=== PATIENT | female | born 1960 | race Two or more races ===

== ENCOUNTER 2021-04-13 11:43 | Inpatient (IN) | payer MEDICAID, OTHER ==
[~2021-04-13] VITALS: Ht 154.9 cm; Wt 86.9 kg
[2021-04-13] MEDS ORDERED: KETOROLAC 30 MG/1 ML ONE (12:06)
[2021-04-13] MEDS ORDERED: ACETAMINOPHEN 500 MG TABLET ONE (12:06)
--- NOTE | 2021-04-13 12:12 | NUR ---
PT BIBA. PER EMS PT HAS HAD SORE NECK, PAINFUL URINATION, N/V, AND COUGH. EMS ALSO REPORTS ORAL TEMPERATURE 102.9F. PT HAD RECTAL TEMPERATURE 103.6F CURRENTLY. PT STATES SHE HAS HAD THESE SYMPTOMS FOR APPROX A WEEK. DR. KNUTSON AT BEDSIDE FOR EVAL. EKG DONE UPON ARRIVAL. PT RESTING IN [facility], MONITORING IN PLACE, DAUGHTER AT BEDSIDE, NADN AT THIS TIME. COVID SWAB COLLECTED AND WALKED TO LAB. PT MEDICATED PER [facility]. PIV IN PLACE FROM [facility]. [facility].
[2021-04-13] MEDS ORDERED: KETOROLAC 30 MG/1 ML IVPush ONE (12:30)
[2021-04-13] MEDS ORDERED: ACETAMINOPHEN 500 MG TABLET PO ONE (12:30)
[2021-04-13] MEDS ORDERED: SODIUM CHLORIDE 0.9% 1,000ML IVBOLUS ONE ×3 (12:30→19:30)
[2021-04-13 13:14] LABS: BASOPHILS % (AUTO) 0 % (0-1); EOSINOPHILS % (AUTO) 0 % (1-7); LYMPHOCYTES % (AUTO) 5 % (22-44); MEAN CORPUSCULAR HEMOGLOBIN 29.9 pg (27.0-34.8); MEAN CORPUSCULAR HGB CONC 34.1 g/dL (32.4-35.8); MEAN PLATELET VOLUME 7.3 fL (7.4-10.4); MONOCYTES % (AUTO) 5 % (2-9); NEUTROPHILS % (AUTO) 90 % (42-75); PLATELET COUNT 217 x10^3/uL (130-400); RED BLOOD COUNT 3.95 x10^6/uL (3.82-5.3); RED CELL DISTRIBUTION WIDTH 12.3 % (9.6-15.2)
[2021-04-13 13:22] LABS: ALANINE AMINOTRANSFERASE 11 U/L (12-78); ALBUMIN 2.9 g/dL (3.4-5.0); ANION GAP 7 mmol/L (5-15); CALCIUM 8.5 mg/dL (8.5-10.1); CHLORIDE 110 mmol/L (98-107)
[2021-04-13 13:24] LABS: ALKALINE PHOSPHATASE 83 U/L (45-117); BILIRUBIN,TOTAL 0.5 mg/dL (0.2-1.0); TOTAL PROTEIN 6.1 g/dL (6.4-8.2)
--- NOTE | 2021-04-13 13:30 | NUR ---
UOB TO COMMODE WITHOUT ASSISTANCE. URINE COLLECTED IN HAT NOTED TO BE CLOUDY. SENT TO LAB
[2021-04-13 13:39] LABS: MICROSCOPIC INDICATED
[2021-04-13] MEDS ORDERED: CEFTRIAXONE 1,000 MG in DEXTROSE 5% 50 ML IVPB ONE (14:00)
[2021-04-13 15:46] VITALS: BP 93/62
[2021-04-13] MEDS ORDERED: LEVO137C4 PO (16:23)
[2021-04-13] MEDS ORDERED: BISACODYL 10 MG SUPP PR PRN (19:00)
[2021-04-13] MEDS ORDERED: ONDANSETRON ODT 4 MG PO PRN (19:00)
[2021-04-13] MEDS ORDERED: CEFTRIAXONE 1,000 MG in DEXTROSE 5% 50 ML IVPB SCH (19:00)
[2021-04-13] MEDS ORDERED: GUAIFENESIN/COD200MG-20MG/10ML LIQUID PO PRN (19:00)
[2021-04-13] MEDS ORDERED: hydrALAzine 20 MG/ML, 1ML IVPush PRN (19:00)
[2021-04-13] MEDS ORDERED: POTASSIUM CHLORIDE 40 MEQ in SODIUM CHLORIDE 0.9% 500 ML IV ONE (19:30)
[2021-04-13 19:48] VITALS: BP 146/82
[2021-04-13 19:50] VITALS: BP 146/82
[2021-04-13] MEDS: ENOXAPARIN 40 MG/0.4 ML SQ SCH (20:37)
[2021-04-13] MEDS: DOXYCYCLINE 100MG TABLET PO SCH (20:43)
[2021-04-13] MEDS: MELATONIN 5 MG TABLET PO PRN (20:44)
[2021-04-13 23:03] LABS: RAPID INFLUENZA A Negative (Negative); RAPID INFLUENZA B Negative (Negative)
[2021-04-14 02:41] VITALS: BP 124/67
[2021-04-14] MEDS: ACETAMINOPHEN 325 MG TABLET PO PRN ×2 (02:55→09:46)
[2021-04-14] MEDS: LACTATED RINGERS 1,000 ML IV SCH ×2 (02:57→20:53)
[2021-04-14] MEDS: CEFTRIAXONE 2 GM in DEXTROSE 5% 50 ML IVPB SCH (03:43)
[2021-04-14 06:18] LABS: BASOPHILS % (AUTO) 0 % (0-1); EOSINOPHILS % (AUTO) 0 % (1-7); LYMPHOCYTES % (AUTO) 18 % (22-44); MEAN CORPUSCULAR HEMOGLOBIN 30.4 pg (27.0-34.8); MEAN PLATELET VOLUME 7.2 fL (7.4-10.4); MONOCYTES % (AUTO) 8 % (2-9); NEUTROPHILS % (AUTO) 73 % (42-75); PLATELET COUNT 195 x10^3/uL (130-400); RED BLOOD COUNT 3.53 x10^6/uL (3.82-5.3); RED CELL DISTRIBUTION WIDTH 12.2 % (9.6-15.2)
[2021-04-14 06:30] LABS: ALANINE AMINOTRANSFERASE 7 U/L (12-78); ALBUMIN 2.4 g/dL (3.4-5.0); ANION GAP 8 mmol/L (5-15); CALCIUM 8.2 mg/dL (8.5-10.1); CHLORIDE 112 mmol/L (98-107); CREATININE 0.53 mg/dL (0.55-1.02)
[2021-04-14] MEDS ORDERED: OMNIPAQUE 350 MG/ML, 100ML BOTTLE ONE (06:34)
[2021-04-14] MEDS: PANTOPRAZOLE 40MG TABLET PO SCH (06:34)
[2021-04-14 06:40] VITALS: BP 109/70
[2021-04-14 06:40] LABS: ALKALINE PHOSPHATASE 70 U/L (45-117); BILIRUBIN,TOTAL 0.4 mg/dL (0.2-1.0); TOTAL PROTEIN 5.7 g/dL (6.4-8.2)
[2021-04-14] MEDS ORDERED: POTASSIUM CHLORIDE 40 MEQ in SODIUM CHLORIDE 0.9% 500 ML IV ONE (08:00)
[2021-04-14] MEDS: GUAIFENESIN/COD200MG-20MG/10ML LIQUID PO SCH ×4 (09:01→20:54)
[2021-04-14] MEDS: DOXYCYCLINE 100MG TABLET PO SCH ×2 (09:01→20:54)
[2021-04-14 13:03] VITALS: BP 107/70
[2021-04-14 18:40] VITALS: BP 149/86
[2021-04-14] MEDS: ENOXAPARIN 40 MG/0.4 ML SQ SCH (20:55)
[2021-04-15 00:20] VITALS: BP 120/74
[2021-04-15] MEDS: ACETAMINOPHEN 325 MG TABLET PO PRN ×2 (00:38→16:21)
[2021-04-15] MEDS: CEFTRIAXONE 2 GM in DEXTROSE 5% 50 ML IVPB SCH (02:53)
[2021-04-15] MEDS: LEVOTHYROXINE 137 MCG TABLET PO SCH ×3 (05:30→09:09)
[2021-04-15] MEDS: GUAIFENESIN/COD200MG-20MG/10ML LIQUID PO SCH ×4 (05:37→20:42)
[2021-04-15 05:47] LABS: BASOPHILS % (AUTO) 0 % (0-1); EOSINOPHILS % (AUTO) 0 % (1-7); LYMPHOCYTES % (AUTO) 23 % (22-44); MEAN CORPUSCULAR HEMOGLOBIN 30.5 pg (27.0-34.8); MEAN CORPUSCULAR HGB CONC 34.7 g/dL (32.4-35.8); MEAN PLATELET VOLUME 7.2 fL (7.4-10.4); MONOCYTES % (AUTO) 9 % (2-9); NEUTROPHILS % (AUTO) 67 % (42-75); PLATELET COUNT 203 x10^3/uL (130-400); RED BLOOD COUNT 3.66 x10^6/uL (3.82-5.3); RED CELL DISTRIBUTION WIDTH 12.3 % (9.6-15.2)
[2021-04-15 05:55] LABS: ANION GAP 7 mmol/L (5-15); CHLORIDE 110 mmol/L (98-107); CREATININE 0.58 mg/dL (0.55-1.02)
[2021-04-15 06:53] VITALS: BP 161/88
[2021-04-15] MEDS: DOXYCYCLINE 100MG TABLET PO SCH ×2 (09:09→20:43)
[2021-04-15] MEDS: PANTOPRAZOLE 40MG TABLET PO SCH (09:09)
[2021-04-15] MEDS: LACTATED RINGERS 1,000 ML IV SCH (09:10)
[2021-04-15] MEDS: DOCUSATE 100 MG CAPSULE PO PRN (10:20)
[2021-04-15 13:33] VITALS: BP 129/85
[2021-04-15 19:10] VITALS: BP 113/71
[2021-04-15] MEDS: ENOXAPARIN 40 MG/0.4 ML SQ SCH (20:42)
[2021-04-16 00:13] VITALS: BP 123/71
[2021-04-16] MEDS: ACETAMINOPHEN 325 MG TABLET PO PRN (01:37)
[2021-04-16] MEDS: CEFTRIAXONE 2 GM in DEXTROSE 5% 50 ML IVPB SCH (02:24)
[2021-04-16] MEDS: ONDANSETRON 2MG/ML, 2ML IVPush PRN (05:11)
[2021-04-16] MEDS: GUAIFENESIN/COD200MG-20MG/10ML LIQUID PO SCH ×3 (05:11→15:57)
[2021-04-16] MEDS: LEVOTHYROXINE 137 MCG TABLET PO SCH ×2 (05:11→22:04)
[2021-04-16 05:51] LABS: BASOPHILS % (AUTO) 0 % (0-1); EOSINOPHILS % (AUTO) 0 % (1-7); LYMPHOCYTES % (AUTO) 27 % (22-44); MEAN CORPUSCULAR HEMOGLOBIN 30.4 pg (27.0-34.8); MEAN CORPUSCULAR HGB CONC 34.8 g/dL (32.4-35.8); MEAN PLATELET VOLUME 7.1 fL (7.4-10.4); MONOCYTES % (AUTO) 9 % (2-9); NEUTROPHILS % (AUTO) 63 % (42-75); PLATELET COUNT 267 x10^3/uL (130-400); RED BLOOD COUNT 3.92 x10^6/uL (3.82-5.3); RED CELL DISTRIBUTION WIDTH 12.3 % (9.6-15.2)
[2021-04-16 05:52] LABS: ANION GAP 6 mmol/L (5-15); CALCIUM 8.7 mg/dL (8.5-10.1); CHLORIDE 107 mmol/L (98-107)
[2021-04-16 05:54] LABS: CREATININE 0.63 mg/dL (0.55-1.02)
[2021-04-16] MEDS ORDERED: POTASSIUM CHLORIDE 20 MEQ TAB.ER.PRT PO ONE (06:30)
[2021-04-16 06:50] VITALS: BP 116/76
[2021-04-16] MEDS: DOXYCYCLINE 100MG TABLET PO SCH ×2 (08:31→20:14)
[2021-04-16] MEDS: PANTOPRAZOLE 40MG TABLET PO SCH (08:32)
[2021-04-16 13:43] VITALS: BP 127/81
[2021-04-16 19:21] VITALS: BP 147/96
[2021-04-16] MEDS: GUAIFENESIN 200 MG TABLET PO SCH (20:15)
[2021-04-16] MEDS: ENOXAPARIN 40 MG/0.4 ML SQ SCH (20:15)
[2021-04-16] MEDS: DOCUSATE 100 MG CAPSULE PO PRN (20:23)
[2021-04-16] MEDS: POLYETHYLENE GLYCOL 17 GM PACKET PO PRN (20:23)
[2021-04-17 02:19] VITALS: BP 128/77
[2021-04-17] MEDS: CEFTRIAXONE 2 GM in DEXTROSE 5% 50 ML IVPB SCH (02:22)
[2021-04-17 05:25] LABS: BASOPHILS % (AUTO) 1 % (0-1); EOSINOPHILS % (AUTO) 0 % (1-7); LYMPHOCYTES % (AUTO) 33 % (22-44); MEAN CORPUSCULAR HEMOGLOBIN 30.5 pg (27.0-34.8); MEAN CORPUSCULAR HGB CONC 34.9 g/dL (32.4-35.8); MEAN PLATELET VOLUME 6.7 fL (7.4-10.4); MONOCYTES % (AUTO) 11 % (2-9); NEUTROPHILS % (AUTO) 55 % (42-75); PLATELET COUNT 266 x10^3/uL (130-400); RED BLOOD COUNT 3.88 x10^6/uL (3.82-5.3); RED CELL DISTRIBUTION WIDTH 12.3 % (9.6-15.2)
[2021-04-17 05:40] LABS: ANION GAP 8 mmol/L (5-15); CALCIUM 8.8 mg/dL (8.5-10.1); CHLORIDE 107 mmol/L (98-107); CREATININE 0.62 mg/dL (0.55-1.02)
[2021-04-17] MEDS: LEVOTHYROXINE 137 MCG TABLET PO SCH (05:43)
[2021-04-17] MEDS: ACETAMINOPHEN 325 MG TABLET PO PRN ×2 (05:43→14:58)
[2021-04-17] MEDS: GUAIFENESIN 200 MG TABLET PO SCH ×4 (05:44→21:28)
[2021-04-17] MEDS: PANTOPRAZOLE 40MG TABLET PO SCH (07:23)
[2021-04-17 07:40] VITALS: BP 116/77
[2021-04-17] MEDS: DOXYCYCLINE 100MG TABLET PO SCH ×2 (08:31→21:27)
[2021-04-17] MEDS: ONDANSETRON 2MG/ML, 2ML IVPush PRN (09:02)
[2021-04-17] MEDS: POLYETHYLENE GLYCOL 17 GM PACKET PO PRN (11:22)
[2021-04-17] MEDS: DOCUSATE 100 MG CAPSULE PO PRN (11:22)
[2021-04-17 12:42] VITALS: BP 130/82
[2021-04-17] MEDS ORDERED: POTASSIUM CHLORIDE 20 MEQ TAB.ER.PRT PO ONE (20:00)
[2021-04-17 21:17] VITALS: BP 114/63
[2021-04-17] MEDS: ENOXAPARIN 40 MG/0.4 ML SQ SCH (21:29)
[2021-04-17] MEDS: MELATONIN 5 MG TABLET PO PRN (22:18)
[2021-04-18 01:29] VITALS: BP 136/45
[2021-04-18] MEDS: CEFTRIAXONE 2 GM in DEXTROSE 5% 50 ML IVPB SCH (02:02)
[2021-04-18] MEDS: ACETAMINOPHEN 325 MG TABLET PO PRN (02:08)
[2021-04-18 04:58] LABS: ANION GAP 7 mmol/L (5-15); CALCIUM 8.9 mg/dL (8.5-10.1); CHLORIDE 108 mmol/L (98-107)
[2021-04-18 04:59] LABS: BASOPHILS % (AUTO) 1 % (0-1); EOSINOPHILS % (AUTO) 0 % (1-7); LYMPHOCYTES % (AUTO) 30 % (22-44); MEAN CORPUSCULAR HEMOGLOBIN 30.3 pg (27.0-34.8); MEAN CORPUSCULAR HGB CONC 34.2 g/dL (32.4-35.8); MEAN PLATELET VOLUME 6.7 fL (7.4-10.4); MONOCYTES % (AUTO) 10 % (2-9); NEUTROPHILS % (AUTO) 59 % (42-75); PLATELET COUNT 320 x10^3/uL (130-400); RED BLOOD COUNT 4.15 x10^6/uL (3.82-5.3); RED CELL DISTRIBUTION WIDTH 12.3 % (9.6-15.2)
[2021-04-18 05:01] LABS: CREATININE 0.69 mg/dL (0.55-1.02)
[2021-04-18] MEDS: GUAIFENESIN 200 MG TABLET PO SCH ×2 (06:06→11:06)
[2021-04-18] MEDS: LEVOTHYROXINE 137 MCG TABLET PO SCH (06:06)
[2021-04-18 06:39] VITALS: BP 132/85
[2021-04-18] MEDS: PANTOPRAZOLE 40MG TABLET PO SCH (07:22)
[2021-04-18] MEDS ORDERED: GUAI200T37 PO (07:50)
[2021-04-18] MEDS ORDERED: ACET325T26 PO (07:50)
[2021-04-18] MEDS ORDERED: CEFD300C37 PO (07:59)
[2021-04-18] MEDS: DOXYCYCLINE 100MG TABLET PO SCH (08:57)
[2021-04-18 13:34] VITALS: BP 125/88
== END 2021-04-18 14:40 | disposition home or self-care (01) | DRG 720 ==
LOC: ED 13:36 → EDIP 14:40 → 3N 15:39 → DCLOUNGE 04-18 14:29
PROVIDERS: ADMIT Hospitalist; ATTEND Internal Medicine
DX: A41.51 Sepsis due to Escherichia coli [E. coli] (principal); I95.9 Hypotension, unspecified; N12 Tubulo-interstitial nephritis, not specified as acute or chronic; E03.9 Hypothyroidism, unspecified; E86.1 Hypovolemia; E87.6 Hypokalemia; I10 Essential (primary) hypertension; Z20.822 Contact with and (suspected) exposure to COVID-19
CPT/HCPCS: 36415; 71045; 71275; 76770; 80048; 80053; 81001; 82728; 83605; 83615; 83735; 84100; 84145; 84443; 85025; 85379; 85384; 87040; 87077; 87086; 87186; 87400; 93005; 96361; 96365; 96375; G0378; J0696; J1650; J1885; J2405; J3480; Q0162; Q9967; U0005; J7030; J7040; J7120; U0003